=== PATIENT | female | born 1965 | race Caucasian/White ===

== ENCOUNTER 2019-12-15 20:00 | Outpatient (CLI) | payer MEDICARE, MEDICAID, SELFPAY | END 2019-12-15 20:01 | disposition home or self-care (01) | LOC: SLEEP 12-16 10:13 | PROVIDERS: Family Provider Nurse Practitioner; PCP Nurse Practitioner Family; Visit Provider Nurse Practitioner Family | DX: G47.30 Sleep apnea, unspecified (principal) | CPT/HCPCS: 95810 ==

== ENCOUNTER 2019-12-28 10:28 | Outpatient (CLI) | payer MEDICARE, MEDICAID, SELFPAY ==
--- NOTE | 2019-12-28 10:40 | XRR_ITS ---
PROCEDURE INFORMATION: Exam: XR Lumbosacral Spine, 2 or 3 Views Exam date and time: 12/28/2019 11:17 AM Age: 54 years old Clinical indication: Low back pain TECHNIQUE: Imaging protocol: XR of the lumbosacral spine, 2 or 3 views. COMPARISON: No relevant prior studies available. FINDINGS: Vertebrae: There may be L5 spondylolysis, difficult to confirm on this exam. There are multilevel degenerative changes including disc space narrowing, facet arthropathy, and hypertrophic spur formation. Gastrointestinal tract: There is a moderate amount of stool in the right colon. Soft tissues: Normal. Other findings: There are multiple nonspecific pelvic calcifications. XR/XR lumbar spine 2-3V* [id number] IMPRESSION: There may be L5 spondylolysis, difficult to confirm on this exam. Followup CT scan as clinically indicated.
== END 2019-12-28 10:29 | disposition home or self-care (01) ==
LOC: RAD 10:34
PROVIDERS: Family Provider Nurse Practitioner; PCP Nurse Practitioner Family; Visit Provider Nurse Practitioner Family
DX: S39.012A Strain of muscle, fascia and tendon of lower back, initial encounter (principal); X58.XXXA Exposure to other specified factors, initial encounter; M47.896 Other spondylosis, lumbar region
CPT/HCPCS: 72100

== ENCOUNTER 2020-01-18 14:02 | Outpatient (CLI) | payer MEDICARE, MEDICAID, SELFPAY ==
--- NOTE | 2020-01-18 14:30 | CT_ITS ---
WS: [id number] CT MYELOGRAM LUMBAR SPINE HISTORY: abnormal x-ray TECHNIQUE: Contiguous 2.5 mm axial imaging performed from T12 through the mid sacral level. Bone and soft tissue windows reviewed. Sagittal and coronal reformats are submitted and reviewed. DLP: 2096.[address] scans at [facility] use at least one of these dose optimization techniques: automat ed exposure control; mA and/or kV adjustment per patient size (includes targeted exams where dose is matched to clinical indication); or iterative reconstruction. COMPARISON: None available. 5 lumbar type vertebral bodies. L1 retrolisthesis by 2 mm. Mild disc space narrowing and desiccation at all levels. No fractures. L1-L2: Diffuse asymmetric disc bulging. Mild encroachment upon the ventral thecal sac. Mild central a nd subarticular recess stenosis. L2-L3: Diffuse annular disc bulging with mild central and subarticular recess narrowing. L3-L4: Diffuse asymmetric disc bulging and facet arthropathy. Mild central and subarticular recess st enosis. L4-L5: Diffuse annular disc bulging. Focal RIGHT foraminal disc protrusion. Moderate central and suba rticular recess stenosis. Moderate bilateral foraminal stenosis. L5-S1: Diffuse disc bulging with moderate facet and ligamentum flavum arthropathy. Osteophytes narrow the subarticular recesses and proximal foramen. Moderate central, subarticular recess and foraminal stenosis. Extensive atherosclerosis abdominal aorta with no aneurysm. Several cysts in the LEFT kidney. CT/CT lumbar spine w con [id number] IMPRESSION: 1. Moderate central, subarticular recess and foraminal stenosis at L4-5 and L5 -S1. Greatest stenosis at L5-S1. 2. Focal RIGHT foraminal disc protrusion at L4-5. 3. Mild central and subarticular recess stenosis at L1-2, L2-3 and L3-4.
[2020-01-18] MEDS: iohexol 300 mg/mL 100 mL Btl IV (14:56)
== END 2020-01-18 14:03 | disposition home or self-care (01) ==
LOC: RAD 14:03
PROVIDERS: Family Provider Nurse Practitioner Family; PCP Nurse Practitioner Family; Visit Provider Nurse Practitioner Family
DX: M43.16 Spondylolisthesis, lumbar region (principal); M51.26 Other intervertebral disc displacement, lumbar region; M48.061 Spinal stenosis, lumbar region without neurogenic claudication
CPT/HCPCS: 72132

== ENCOUNTER → 2020-01-28 13:13 | Outpatient (BNVA) | payer MEDICARE, MEDICAID, SELFPAY | PROVIDERS: Family Provider Nurse Practitioner Family; PCP Nurse Practitioner Family; Visit Provider Psychiatry & Neurology Psychiatry | DX: F43.12 Post-traumatic stress disorder, chronic (principal); F33.2 Major depressive disorder, recurrent severe without psychotic features; F10.21 Alcohol dependence, in remission; F12.20 Cannabis dependence, uncomplicated | CPT/HCPCS: 99204 ==

== ENCOUNTER 2020-01-29 07:33 | Outpatient (RCR) | payer MEDICARE, MEDICAID, SELFPAY | END 2020-01-30 23:59 | disposition home or self-care (01) | LOC: SPT 07:33 | PROVIDERS: Family Provider Nurse Practitioner Family; PCP Nurse Practitioner Family; Referring Provider Nurse Practitioner Family; Visit Provider Nurse Practitioner Family | DX: M48.07 Spinal stenosis, lumbosacral region (principal) | CPT/HCPCS: 97161 ==

== ENCOUNTER 2020-01-31 06:00 | Outpatient (RCR) | payer MEDICARE, MEDICAID, SELFPAY | END 2020-03-01 23:59 | disposition home or self-care (01) | LOC: SPT 06:00 | PROVIDERS: Family Provider Nurse Practitioner Family; PCP Nurse Practitioner Family; Referring Provider Nurse Practitioner Family; Visit Provider Nurse Practitioner Family | DX: M48.07 Spinal stenosis, lumbosacral region (principal) | CPT/HCPCS: 97110 ==

== ENCOUNTER → 2020-02-10 11:14 | Outpatient (BNVA) | payer MEDICARE, SELFPAY | PROVIDERS: Family Provider Nurse Practitioner Family; PCP Nurse Practitioner Family; Visit Provider Nurse Practitioner Family | DX: D64.9 Anemia, unspecified (principal); Z51.81 Encounter for therapeutic drug level monitoring; E03.9 Hypothyroidism, unspecified; D50.8 Other iron deficiency anemias; M54.42 Lumbago with sciatica, left side; M54.41 Lumbago with sciatica, right side; G89.29 Other chronic pain | CPT/HCPCS: 80053; 84443; 85025 ==

== ENCOUNTER → 2020-02-25 13:29 | Outpatient (BNVA) | payer MEDICARE, MEDICAID, SELFPAY | PROVIDERS: Family Provider Nurse Practitioner Family; PCP Nurse Practitioner Family; Visit Provider Psychiatry & Neurology Psychiatry | DX: F12.20 Cannabis dependence, uncomplicated (principal); F10.21 Alcohol dependence, in remission; F33.2 Major depressive disorder, recurrent severe without psychotic features; F43.12 Post-traumatic stress disorder, chronic | CPT/HCPCS: 99213 ==

== ENCOUNTER 2020-04-21 06:00 | Outpatient (RCR) | payer MEDICARE, MEDICAID, SELFPAY | END 2020-05-01 23:59 | disposition home or self-care (01) | LOC: SPT 06:00 | PROVIDERS: PCP Nurse Practitioner Family; Visit Provider Nurse Practitioner Family | DX: G89.29 Other chronic pain (principal); M54.42 Lumbago with sciatica, left side; M54.41 Lumbago with sciatica, right side | CPT/HCPCS: 97161 ==

== ENCOUNTER 2020-04-28 15:04 | Outpatient (CLI) | payer MEDICARE, MEDICAID, SELFPAY ==
--- NOTE | 2020-04-28 15:25 | MM_ITS ---
WS: [id number] SCREENING DIGITAL MAMMOGRAM WITH CAD HISTORY: SCREEN COMPARISON: None available. Bilateral CC and MLO views submitted. Computer aided detection analyzed. Breast composition: There are scattered areas of fibroglandular density. No suspicious masses, microc alcifications or architectural distortion. MM/[place] [id number] IMPRESSION: BI-RADS: 1-Negative FOLLOW UP: 1 Year Follow-up
== END 2020-04-28 15:05 | disposition home or self-care (01) ==
LOC: RADSHAW 15:08
PROVIDERS: PCP Nurse Practitioner Family; Visit Provider Nurse Practitioner Family
DX: Z12.31 Encounter for screening mammogram for malignant neoplasm of breast (principal)
CPT/HCPCS: 77067

== ENCOUNTER 2020-05-02 06:00 | Outpatient (RCR) | payer MEDICARE, MEDICAID, SELFPAY | END 2020-05-31 23:59 | disposition home or self-care (01) | LOC: SPT 06:00 | PROVIDERS: PCP Nurse Practitioner Family; Visit Provider Nurse Practitioner Family | DX: M54.42 Lumbago with sciatica, left side (principal); M54.41 Lumbago with sciatica, right side; G89.29 Other chronic pain | CPT/HCPCS: 97113 ==

== ENCOUNTER → 2020-05-09 10:37 | Outpatient (BNVA) | payer MEDICARE, MEDICAID, SELFPAY | PROVIDERS: PCP Nurse Practitioner Family; Visit Provider Nurse Practitioner Family | DX: R10.9 Unspecified abdominal pain (principal); K21.9 Gastro-esophageal reflux disease without esophagitis; R35.0 Frequency of micturition; H65.01 Acute serous otitis media, right ear | CPT/HCPCS: 81000 ==

== ENCOUNTER → 2020-05-13 10:37 | Outpatient (BNVA) | payer MEDICARE, MEDICAID, SELFPAY | PROVIDERS: PCP Nurse Practitioner Family; Visit Provider Nurse Practitioner Family | DX: R10.9 Unspecified abdominal pain (principal); K21.9 Gastro-esophageal reflux disease without esophagitis; R35.0 Frequency of micturition; H65.01 Acute serous otitis media, right ear | CPT/HCPCS: 87338 ==

== ENCOUNTER → 2020-05-30 07:44 | Outpatient (BNVA) | payer MEDICARE, MEDICAID, SELFPAY | PROVIDERS: PCP Nurse Practitioner Family; Visit Provider Psychiatry & Neurology Psychiatry | DX: F33.2 Major depressive disorder, recurrent severe without psychotic features (principal); F43.12 Post-traumatic stress disorder, chronic; F10.21 Alcohol dependence, in remission; F12.20 Cannabis dependence, uncomplicated | CPT/HCPCS: 99213 ==

== ENCOUNTER → 2020-08-11 10:44 | Outpatient (BNVA) | payer MEDICARE, MEDICAID, SELFPAY | PROVIDERS: PCP Nurse Practitioner Family; Visit Provider Nurse Practitioner Family | DX: E03.9 Hypothyroidism, unspecified (principal) | CPT/HCPCS: 84443 ==

== ENCOUNTER 2020-08-18 06:00 | Outpatient (RCR) | payer MEDICARE, MEDICAID, SELFPAY | END 2020-08-31 23:59 | disposition home or self-care (01) | LOC: SPT 06:00 | PROVIDERS: PCP Nurse Practitioner Family; Referring Provider Nurse Practitioner Family; Visit Provider Nurse Practitioner Family | DX: M54.5 Low back pain (principal) | CPT/HCPCS: 97110; 97162 ==

== ENCOUNTER → 2020-08-29 08:13 | Outpatient (BNVA) | payer MEDICARE, MEDICAID, SELFPAY | PROVIDERS: PCP Nurse Practitioner Family; Referring Provider Nurse Practitioner Family; Visit Provider Anesthesiology Pain Medicine | DX: G89.29 Other chronic pain (principal); M47.816 Spondylosis without myelopathy or radiculopathy, lumbar region; M48.061 Spinal stenosis, lumbar region without neurogenic claudication; M51.16 Intervertebral disc disorders with radiculopathy, lumbar region; M54.2 Cervicalgia; M25.512 Pain in left shoulder; J44.9 Chronic obstructive pulmonary disease, unspecified; E03.9 Hypothyroidism, unspecified; D50.8 Other iron deficiency anemias; F17.210 Nicotine dependence, cigarettes, uncomplicated; Z98.890 Other specified postprocedural states | CPT/HCPCS: 99204 ==

== ENCOUNTER 2020-09-01 06:00 | Outpatient (RCR) | payer MEDICARE, MEDICAID, SELFPAY | END 2020-10-01 23:59 | disposition home or self-care (01) | LOC: SPT 06:00 | PROVIDERS: PCP Nurse Practitioner Family; Referring Provider Nurse Practitioner Family; Visit Provider Nurse Practitioner Family | DX: M54.5 Low back pain (principal) | CPT/HCPCS: 97113 ==

== ENCOUNTER 2020-10-02 06:00 | Outpatient (RCR) | payer MEDICARE, MEDICAID, SELFPAY | END 2020-10-31 23:59 | disposition home or self-care (01) | LOC: SPT 06:00 | PROVIDERS: PCP Nurse Practitioner Family; Referring Provider Nurse Practitioner Family; Visit Provider Nurse Practitioner Family | DX: M54.5 Low back pain (principal) | CPT/HCPCS: 97113; 97164 ==

== ENCOUNTER → 2020-10-14 09:24 | Outpatient (BNVA) | payer MEDICARE, MEDICAID, SELFPAY | PROVIDERS: PCP Nurse Practitioner Family; Visit Provider Psychiatry & Neurology Psychiatry | DX: F33.2 Major depressive disorder, recurrent severe without psychotic features (principal); F10.21 Alcohol dependence, in remission; F12.20 Cannabis dependence, uncomplicated; F43.12 Post-traumatic stress disorder, chronic | CPT/HCPCS: 99213 ==

== ENCOUNTER → 2020-10-17 13:47 | Outpatient (BNVA) | payer MEDICARE, MEDICAID, SELFPAY | PROVIDERS: PCP Nurse Practitioner Family; Visit Provider Podiatrist Foot & Ankle Surgery | DX: M21.612 Bunion of left foot (principal); M21.611 Bunion of right foot | CPT/HCPCS: 73630 ==

== ENCOUNTER → 2020-10-18 12:18 | Outpatient (BNVA) | payer MEDICARE, MEDICAID, SELFPAY | PROVIDERS: PCP Nurse Practitioner Family; Visit Provider Anesthesiology Pain Medicine | DX: G89.29 Other chronic pain (principal); M51.16 Intervertebral disc disorders with radiculopathy, lumbar region; F17.210 Nicotine dependence, cigarettes, uncomplicated | CPT/HCPCS: 64483; 64484; J1100; J3490 ==

== ENCOUNTER → 2020-10-20 13:08 | Outpatient (BNVA) | payer MEDICARE, MEDICAID, SELFPAY | PROVIDERS: PCP Nurse Practitioner Family; Visit Provider Nurse Practitioner Family | DX: K21.9 Gastro-esophageal reflux disease without esophagitis (principal) | CPT/HCPCS: 87338 ==

== ENCOUNTER → 2020-10-24 09:15 | Outpatient (BNVA) | payer MEDICARE, MEDICAID, SELFPAY | PROVIDERS: PCP Nurse Practitioner Family; Visit Provider Internal Medicine | DX: Z11.59 Encounter for screening for other viral diseases (principal); Z86.010 Personal history of colon polyps | CPT/HCPCS: 87635 ==

== ENCOUNTER 2020-11-01 06:00 | Outpatient (RCR) | payer MEDICARE, MEDICAID, SELFPAY | END 2020-12-01 23:59 | disposition home or self-care (01) | LOC: SPT 06:00 | PROVIDERS: PCP Nurse Practitioner Family; Referring Provider Nurse Practitioner Family; Visit Provider Nurse Practitioner Family | DX: M54.5 Low back pain (principal) | CPT/HCPCS: 97113 ==

== ENCOUNTER → 2020-11-09 13:09 | Outpatient (BNVA) | payer MEDICARE, MEDICAID, SELFPAY | PROVIDERS: PCP Nurse Practitioner Family; Visit Provider Anesthesiology Pain Medicine | DX: G89.29 Other chronic pain (principal); M51.16 Intervertebral disc disorders with radiculopathy, lumbar region; M47.816 Spondylosis without myelopathy or radiculopathy, lumbar region; M48.061 Spinal stenosis, lumbar region without neurogenic claudication; M51.17 Intervertebral disc disorders with radiculopathy, lumbosacral region; M54.2 Cervicalgia; M25.512 Pain in left shoulder; J44.9 Chronic obstructive pulmonary disease, unspecified; E03.9 Hypothyroidism, unspecified; D50.8 Other iron deficiency anemias; S39.012A Strain of muscle, fascia and tendon of lower back, initial encounter; X58.XXXA Exposure to other specified factors, initial encounter | CPT/HCPCS: 99214 ==

== ENCOUNTER → 2020-11-21 13:23 | Outpatient (BNVA) | payer MEDICARE, MEDICAID, SELFPAY | PROVIDERS: PCP Nurse Practitioner Family; Visit Provider Anesthesiology Pain Medicine | DX: G89.29 Other chronic pain (principal); M51.16 Intervertebral disc disorders with radiculopathy, lumbar region; F17.210 Nicotine dependence, cigarettes, uncomplicated | CPT/HCPCS: 62323; J1040; J3490 ==

== ENCOUNTER → 2021-02-08 10:35 | Outpatient (BNVA) | payer MEDICARE, MEDICAID, SELFPAY | PROVIDERS: PCP Nurse Practitioner Family; Visit Provider Nurse Practitioner Family | DX: E03.9 Hypothyroidism, unspecified (principal); M25.50 Pain in unspecified joint; Z51.81 Encounter for therapeutic drug level monitoring; K21.9 Gastro-esophageal reflux disease without esophagitis; L98.9 Disorder of the skin and subcutaneous tissue, unspecified | CPT/HCPCS: 80053; 84443; 85651; 86038; 86140; 86431 ==

== ENCOUNTER → 2021-02-16 08:30 | Outpatient (BNVA) | payer MEDICARE, MEDICAID, SELFPAY | PROVIDERS: PCP Nurse Practitioner Family; Visit Provider Anesthesiology Pain Medicine | DX: G89.29 Other chronic pain (principal); M51.16 Intervertebral disc disorders with radiculopathy, lumbar region; M48.061 Spinal stenosis, lumbar region without neurogenic claudication; M47.816 Spondylosis without myelopathy or radiculopathy, lumbar region; M54.2 Cervicalgia; M25.512 Pain in left shoulder; M25.551 Pain in right hip; M25.552 Pain in left hip; J44.9 Chronic obstructive pulmonary disease, unspecified; E03.9 Hypothyroidism, unspecified; D50.8 Other iron deficiency anemias; Z98.890 Other specified postprocedural states | CPT/HCPCS: 99214 ==

== ENCOUNTER → 2021-02-24 08:15 | Outpatient (BNVA) | payer MEDICARE, MEDICAID, SELFPAY | PROVIDERS: PCP Nurse Practitioner Family; Visit Provider Internal Medicine Critical Care Medicine | DX: J44.9 Chronic obstructive pulmonary disease, unspecified (principal) | CPT/HCPCS: 87635 ==

== ENCOUNTER 2021-03-02 08:07 | Outpatient (CLI) | payer MEDICARE, MEDICAID, SELFPAY ==
--- NOTE | 2021-03-02 08:18 | CT_ITS ---
WS: [id number] LDCT LUNG CANCER SCREENING HISTORY: NICOTINE DEPENDENCE, CIGARETTES TECHNIQUE: Axial imaging performed from the apices to 1 cm below the costophrenic angles. Coronal and sagittal reformats are submitted with axial MIP series. All CT scans at [facility] use at least one of these dose optimization techniques: automated exposure control; mA and/or kV adjustment per patient size (includes targeted exams where dose is matched to clinical indication); or iterativ e reconstruction. DLP: 53.0 mGy.cm DIvol: 1.58 mGy COMPARISON: None available. Diagnostic quality: Satisfactory Lung Nodules: No pulmonary nodules or endobronchial lesions. Lungs: Moderate pulmonary hyperexpansion. Linear scar atelectasis in the posterior RIGHT upper lobe, image 45 of series 3. Heart: Normal size heart. Coronary artery calcifications are scattered in most significant in the LEF T anterior descending coronary artery. Other findings: Small hiatal hernia. No adenopathy identified. CT/CT lung screening [id number] IMPRESSION: LUNG-RADS: 1-Negative FOLLOW UP: 12 Month: Continue annual screening with LDCT OTHER FINDINGS (S MODIFIER): None.
--- NOTE | 2021-03-02 08:53 | PFTS_ITS ---
Date of Study:03/02/21 Date of Dictation: 03/03/2021 MECHANICS: Postbronchodilator forced vital capacity (FVC) is normal. Postbronchodilator forced expiratory volume in one second (FEV1) is moderately reduced 69%. FEV1/FVC is reduced. There is no significant response to bronchodilators.. FLOW VOLUME LOOP: Sloping of expiratory limb suggestive of airway obstruction . LUNG VOLUMES: Total lung capacity (TLC) is normal. Residual volume (RV) is normal . DIFFUSING CAPACITY FOR CARBON MONOXIDE:normal . INTERPRETATION: Spirometry suggestive of moderate obstructive ventilatory defect. Normal lung volumes. Normal gas transfer. Please correlate clinically MTDD
== END 2021-03-02 08:08 | disposition home or self-care (01) ==
LOC: RT 08:11
PROVIDERS: PCP Nurse Practitioner Family; Visit Provider Internal Medicine Critical Care Medicine
DX: J44.9 Chronic obstructive pulmonary disease, unspecified (principal); Z12.2 Encounter for screening for malignant neoplasm of respiratory organs; F17.210 Nicotine dependence, cigarettes, uncomplicated; K44.9 Diaphragmatic hernia without obstruction or gangrene; I25.10 Atherosclerotic heart disease of native coronary artery without angina pectoris; J98.11 Atelectasis
CPT/HCPCS: 71271; 94060; 94726; 94729; J7611

== ENCOUNTER 2021-03-07 07:14 | Outpatient (CLI) | payer MEDICARE, MEDICAID, SELFPAY ==
--- NOTE | 2021-03-07 07:23 | USCV_ITS ---
Josefina Arellano Age: 55 Gender: F : 1965 Exam Date: 03/07/2021 07:48 Ordering Phys: Tomasa Singh-C CASE FILLER Technologist: Mani Barnett [place] [facility] [place]: SCREENING HISTORY: Diameter (cm) AP x Transverse x Length Velocity (cm/s) Waveform Prox Aorta: 2.61 x 2.55 x 35.20 Mid Aorta: 1.96 x 2.33 x 53.10 Distal Aorta: 1.91 x 2.14 x 21.20 Right Iliac Prox: 0.84 x 1.23 x 42.70 Left Iliac Prox: 0.99 x 1.00 x 48.60 Stent Prox Landing x x Aneurysmal Sac Max x x Lt Lat Sac Dim Rt Lat Sac Dim Stent Dist Landing x x Right Iliac Stent x x Left Iliac Stent x x Right Renal Art Left Renal Art FINDINGS: Mild diffuse plaques in the abdominal aorta Normal abdominal aortic and proximal common iliac artery dimensions Normal Doppler flow velocities CONCLUSIONS No evidence of any aneurysm or stenosis in the abdominal aorta No significant stenosis or aneurysm in the proximal common iliac arteries bilaterally Dr Jose Mack MD FAC (Electronically Signed) Final Date: 07 March 2021 20:25 S
== END 2021-03-07 07:15 | disposition home or self-care (01) ==
LOC: RAD 07:19
PROVIDERS: PCP Nurse Practitioner Family; Visit Provider Nurse Practitioner Family
DX: Z13.6 Encounter for screening for cardiovascular disorders (principal)
CPT/HCPCS: 76706

== ENCOUNTER → 2021-03-20 10:00 | Outpatient (BNVA) | payer MEDICARE, MEDICAID, SELFPAY | PROVIDERS: PCP Nurse Practitioner Family; Visit Provider Psychiatry & Neurology Psychiatry | DX: F43.12 Post-traumatic stress disorder, chronic (principal); F33.2 Major depressive disorder, recurrent severe without psychotic features; F17.200 Nicotine dependence, unspecified, uncomplicated; F10.21 Alcohol dependence, in remission; F12.20 Cannabis dependence, uncomplicated | CPT/HCPCS: 99214 ==

== ENCOUNTER → 2021-03-24 09:15 | Outpatient (BNVA) | payer MEDICARE, MEDICAID, SELFPAY | PROVIDERS: PCP Nurse Practitioner Family; Visit Provider Internal Medicine | DX: Z20.822 Contact with and (suspected) exposure to COVID-19 (principal); Z01.812 Encounter for preprocedural laboratory examination | CPT/HCPCS: 87635 ==

== ENCOUNTER → 2021-03-29 11:13 | Outpatient (BNVA) | payer MEDICARE, MEDICAID, SELFPAY | PROVIDERS: PCP Nurse Practitioner Family; Visit Provider Internal Medicine | DX: Z01.818 Encounter for other preprocedural examination (principal); Z11.52 Encounter for screening for COVID-19 | CPT/HCPCS: 87635 ==

== ENCOUNTER 2021-04-03 08:46 | Day surgery (SDC) | payer MEDICARE, MEDICAID, SELFPAY ==
[2021-03-24 17:57] VITALS: BMI 27.1
--- NOTE | 2021-03-27 09:18 | W.PM.OPSFHP ---
Same Day Surgery H&P Indication for Procedure/HPI DATE OF PROCEDURE: March 27, 2021 CHIEF COMPLAINT/INDICATIONFOR SURGICAL PROCEDURE: Family history of colon cancer in mother PREOP DIAGNOSIS: Family history of colon cancer PLANNED PROCEDRUE: Operation Date: 03/27/21 09:30 Proposed Procedures p Colonoscopy 66220 Z86.010(Not Applicable) - Braxton Spencer MD Medications/Allergies* Allergies/Adverse Reactions Allergy/AdvReac Type Severity Reaction Status Date / Time hydrocodone Allergy Intermediate itching Verified 03/24/21 09:39 Pertinent History/Comorbid Conditions* Medical History (Updated 03/20/21 @ 11:01 by Rm Reynolds MD) Anemia Chronic low back pain COPD mixed type Depression Gastroesophageal reflux disease Hypothyroidism Pt. due for labs will obtain today. Pt. to continue current medications. Schizophrenia Family History (Updated 01/27/20 @ 10:31 by Belinda Camargo LPN) Grandmother Mother Cancer Mother Grandmother Social History Smoking and tobacco status: current every day smoker cigarettes Years cigarettes smoked: 45 [ Other cigarette details: Hx of 2.5 PPD x 45 Years ] Quit status (tobacco): considering quitting Second hand smoke exposure: Yes Smoking risk assessment/counseling performed?: Yes Tobacco counseling given: counseling >3 minutes Alcohol intake: former Year of sobriety/quit date alcohol: 2017 Desire information about alcohol rehabilitation?: No Counseling given: No Counseling given: No Lives independently: Yes Household members: none Marital status: Current occupational status: disabled Pets and animals: No History of recent travel: No Current gender identity: Female Pertinent Exam Findings alert, oriented x 3, clear to auscultation bilaterally, regular rate & rhythm and procedure specific exam findings Recommendations Surgery/Procedure today Coding Level of Care Code Acute Recordist Chief for Mena Quintanilla
--- NOTE | 2021-04-03 09:09 | P.HP_ITS ---
Same Day Surgery H&P Indication for Procedure/HPI DATE OF PROCEDURE: April 03, 2021 CHIEF COMPLAINT/INDICATIONFOR SURGICAL PROCEDURE: Family history of colon cancer in mother PREOP DIAGNOSIS: c PLANNED PROCEDRUE: Operation Date: 04/03/21 11:00 Proposed Procedures p Colonoscopy 41405 Z86.010(Not Applicable) - Braxton Spencer MD Medications/Allergies* Allergies/Adverse Reactions Allergy/AdvReac Type Severity Reaction Status Date / Time hydrocodone Allergy Intermediate itching Verified 03/24/21 09:39 Pertinent History/Comorbid Conditions* Medical History (Updated 03/20/21 @ 11:01 by Rm Reynolds MD) Anemia Chronic low back pain COPD mixed type Depression Gastroesophageal reflux disease Hypothyroidism Pt. due for labs will obtain today. Pt. to continue current medications. Schizophrenia Family History (Updated 01/27/20 @ 10:31 by Belinda Camargo LPN) Grandmother Mother Cancer Mother Grandmother Social History Smoking and tobacco status: current every day smoker cigarettes Years cigarettes smoked: 45 [ Other cigarette details: Hx of 2.5 PPD x 45 Years ] Quit status (tobacco): considering quitting Second hand smoke exposure: Yes Smoking risk assessment/counseling performed?: Yes Tobacco counseling given: counseling >3 minutes Alcohol intake: former Year of sobriety/quit date alcohol: 2017 Desire information about alcohol rehabilitation?: No Counseling given: No Counseling given: No Lives independently: Yes Household members: none Marital status: Current occupational status: disabled Pets and animals: No History of recent travel: No Current gender identity: Female Pertinent Exam Findings alert, oriented x 3, clear to auscultation bilaterally, regular rate & rhythm and procedure specific exam findings Recommendations Surgery/Procedure today Coding Level of Care Code Acute Physician Support Coordinator for Mena Quintanilla
--- NOTE | 2021-04-03 09:21 | ANES.PREANE2 ---
Pre-Anesthetic Assessment Pre-Anesthetic Assessment: Height/Weight: Height 1.57 m Weight 67.132 kg Proposed Procedure: Operation Date: 04/03/21 11:00 Proposed Procedures p Colonoscopy 59294 Z86.010(Not Applicable) - Braxton Spencer MD Was Beta Derek taken within 24 hours: N/A Was Clonidine taken within 24 hours: N/A Social: Social History: Tobacco and No alcohol Exam: Pre-Anes Outpt Exam: alert, oriented x 3 and regular rate & rhythm Airway: Submandibular: WNL Cervical ROM: WNL MP: 2 Dentition: Loose Pulmonary: Pulmonary: COPD CV/HEM: CV/HEM: Anemia GI: GI: GERD Metabolic: Metabolic: Thyroid Musc/skel: Musc/skel: Fibromyalgia and Lower Back Pain Neuropsych: Neuropsych: Anxiety and Depression Comments: Shcizo Anesthetic Plan: ASA status: 3 Anesthesia: MAC Risk of > 500 ml blood loss (7ml/kg in children): No PFSH Anesthesia PFSH: Medical History Anemia Chronic low back pain COPD mixed type Depression Gastroesophageal reflux disease Hypothyroidism Pt. due for labs will obtain today. Pt. to continue current medications. Schizophrenia Family History Mother Cancer Grandmother Cancer Social History Smoking and tobacco status: current every day smoker cigarettes Years cigarettes smoked: 45 [ Other cigarette details: Hx of 2.5 PPD x 45 Years ] Quit status (tobacco): considering quitting Second hand smoke exposure: Yes Smoking risk assessment/counseling performed?: Yes Tobacco counseling given: counseling >3 minutes Alcohol intake: former Year of sobriety/quit date alcohol: 2017 Desire information about alcohol rehabilitation?: No Counseling given: No Counseling given: No Lives independently: Yes Household members: none Marital status: Current occupational status: disabled Pets and animals: No History of recent travel: No Current gender identity: Female Data Anesthesia Cardiac Studies: No Data to Display
[2021-04-03 10:37] VITALS: BP 156/102; PULSE 71; RESP 16; TEMP 37.2; O2SAT 96
[2021-04-03] MEDS: sodium chloride 0.9% 1,000 ML 30 ML IV (10:53)
[2021-04-03 12:22] VITALS: BP 106/86; PULSE 87; RESP 16; TEMP 36.6; O2SAT 92
[2021-04-03 12:41] VITALS: BP 123/66; PULSE 66; RESP 16; O2SAT 96
--- NOTE | 2021-04-03 14:50 | ANE.PACU2 ---
Inpatient post-anesthesia follow up: Airway intact: Yes Vital signs: Temperature 97.9 F Pulse Rate 66 Respiratory Rate 16 Blood Pressure 123/66 Pulse Oximetry 96 Oxygen Delivery Me thod Room Air Oxygen Flow Rate Fraction of Inspir ed Oxygen Hydration adequate: Yes Nausea and vomiting: No Pain level: 1 Mental status: Baseline
== END 2021-04-03 13:01 | disposition home or self-care (01) ==
PROVIDERS: PCP Nurse Practitioner Family; Visit Provider Internal Medicine
PROC: 0DJD8ZZ Inspection of Lower Intestinal Tract, Via Natural or Artificial Opening Endoscopic (ICD-10-PCS; CPT 45378; principal; 2021-04-03 11:00)
DX: K57.30 Diverticulosis of large intestine without perforation or abscess without bleeding (principal); Z80.0 Family history of malignant neoplasm of digestive organs; Z86.010 Personal history of colon polyps; J44.9 Chronic obstructive pulmonary disease, unspecified; F32.9 Major depressive disorder, single episode, unspecified; K21.9 Gastro-esophageal reflux disease without esophagitis; E03.9 Hypothyroidism, unspecified; F17.210 Nicotine dependence, cigarettes, uncomplicated
CPT/HCPCS: 45378; 96360; 96361; J2704; J7030

== ENCOUNTER → 2021-06-22 07:21 | Outpatient (BNVA) | payer MEDICARE, MEDICAID, SELFPAY | PROVIDERS: PCP Nurse Practitioner Family; Visit Provider Psychiatry & Neurology Psychiatry | DX: F43.12 Post-traumatic stress disorder, chronic (principal); F33.2 Major depressive disorder, recurrent severe without psychotic features; F10.21 Alcohol dependence, in remission; F17.200 Nicotine dependence, unspecified, uncomplicated; F12.20 Cannabis dependence, uncomplicated | CPT/HCPCS: 99214 ==

== ENCOUNTER → 2021-07-26 10:21 | Outpatient (BNVA) | payer MEDICARE, MEDICAID, SELFPAY | PROVIDERS: PCP Nurse Practitioner Family; Visit Provider Nurse Practitioner Family | DX: E78.5 Hyperlipidemia, unspecified (principal); E03.9 Hypothyroidism, unspecified; Z79.899 Other long term (current) drug therapy | CPT/HCPCS: 80053; 80061; 84443 ==

== ENCOUNTER → 2021-08-30 11:30 | Outpatient (BNVA) | payer MEDICARE, MEDICAID, SELFPAY | PROVIDERS: PCP Nurse Practitioner Family; Visit Provider Nurse Practitioner Family | DX: Z12.4 Encounter for screening for malignant neoplasm of cervix (principal); Z12.39 Encounter for other screening for malignant neoplasm of breast; Z78.9 Other specified health status | CPT/HCPCS: 88175 ==

== ENCOUNTER → 2021-09-14 07:05 | Outpatient (BNVA) | payer MEDICARE, MEDICAID, SELFPAY | PROVIDERS: PCP Nurse Practitioner Family; Visit Provider Psychiatry & Neurology Psychiatry | DX: F43.12 Post-traumatic stress disorder, chronic (principal); F33.2 Major depressive disorder, recurrent severe without psychotic features; F17.210 Nicotine dependence, cigarettes, uncomplicated; F10.21 Alcohol dependence, in remission; F12.20 Cannabis dependence, uncomplicated | CPT/HCPCS: 99214 ==

== ENCOUNTER → 2021-09-20 10:45 | Outpatient (BNVA) | payer MEDICARE, MEDICAID, SELFPAY | PROVIDERS: PCP Nurse Practitioner Family; Visit Provider Nurse Practitioner Family | DX: L91.8 Other hypertrophic disorders of the skin (principal) | CPT/HCPCS: 88304 ==

== ENCOUNTER 2021-12-19 06:00 | Outpatient (RCR) | payer MEDICARE, MEDICAID, SELFPAY | END 2022-01-01 23:59 | disposition home or self-care (01) | LOC: SPT 06:00 | PROVIDERS: PCP Nurse Practitioner Family; Referring Provider Nurse Practitioner Family; Visit Provider Nurse Practitioner Family | DX: M51.16 Intervertebral disc disorders with radiculopathy, lumbar region (principal) | CPT/HCPCS: 97161 ==

== ENCOUNTER 2022-01-30 06:00 | Outpatient (RCR) | payer MEDICARE, MEDICAID, SELFPAY | END 2022-03-01 23:59 | disposition home or self-care (01) | LOC: SPT 06:00 | PROVIDERS: PCP Nurse Practitioner Family; Referring Provider Nurse Practitioner Family; Visit Provider Nurse Practitioner Family | DX: M51.16 Intervertebral disc disorders with radiculopathy, lumbar region (principal) | CPT/HCPCS: 97110 ==

== ENCOUNTER → 2022-02-09 09:37 | Outpatient (BNVA) | payer MEDICARE, MEDICAID, SELFPAY | PROVIDERS: PCP Nurse Practitioner Family; Visit Provider Psychiatry & Neurology Psychiatry | DX: F33.2 Major depressive disorder, recurrent severe without psychotic features (principal); F43.12 Post-traumatic stress disorder, chronic; F17.200 Nicotine dependence, unspecified, uncomplicated; F12.20 Cannabis dependence, uncomplicated; F10.21 Alcohol dependence, in remission | CPT/HCPCS: 99214 ==

== ENCOUNTER 2022-05-08 06:00 | Outpatient (RCR) | payer MEDICARE, MEDICAID, SELFPAY | END 2022-05-31 23:59 | disposition home or self-care (01) | LOC: SPT 06:00 | PROVIDERS: PCP Nurse Practitioner Family; Referring Provider Nurse Practitioner Family; Visit Provider Nurse Practitioner Family | DX: M54.50 Low back pain, unspecified (principal) | CPT/HCPCS: 97113; 97161 ==

== ENCOUNTER → 2022-05-10 10:03 | Outpatient (BNVA) | payer MEDICARE, MEDICAID, SELFPAY | PROVIDERS: PCP Nurse Practitioner Family; Visit Provider Psychiatry & Neurology Psychiatry | DX: F33.2 Major depressive disorder, recurrent severe without psychotic features (principal); F43.12 Post-traumatic stress disorder, chronic; F17.200 Nicotine dependence, unspecified, uncomplicated; F12.20 Cannabis dependence, uncomplicated; F10.21 Alcohol dependence, in remission | CPT/HCPCS: 99214 ==

== ENCOUNTER → 2022-08-27 14:52 | Outpatient (BNVA) | payer MEDICARE, MEDICAID, SELFPAY | PROVIDERS: PCP Nurse Practitioner Family; Visit Provider Internal Medicine Critical Care Medicine | DX: J43.2 Centrilobular emphysema (principal); J30.9 Allergic rhinitis, unspecified; F17.200 Nicotine dependence, unspecified, uncomplicated | CPT/HCPCS: 99214 ==

== ENCOUNTER → 2023-02-18 15:23 | Outpatient (BNVA) | payer MEDICARE, MEDICAID, SELFPAY | PROVIDERS: PCP Nurse Practitioner Family; Visit Provider Internal Medicine Pulmonary Disease | DX: J44.9 Chronic obstructive pulmonary disease, unspecified (principal); J30.9 Allergic rhinitis, unspecified; F17.210 Nicotine dependence, cigarettes, uncomplicated | CPT/HCPCS: 99214 ==

== ENCOUNTER → 2023-02-27 14:06 | Outpatient (BNVA) | payer MEDICARE, MEDICAID, SELFPAY | PROVIDERS: PCP Nurse Practitioner Family; Visit Provider Nurse Practitioner Family | DX: I10 Essential (primary) hypertension (principal); E03.9 Hypothyroidism, unspecified; F32.9 Major depressive disorder, single episode, unspecified | CPT/HCPCS: 80053; 80061; 84443 ==

== ENCOUNTER 2023-03-15 07:12 | Outpatient (CLI) | payer MEDICARE, MEDICAID, SELFPAY ==
--- NOTE | 2023-03-15 | CT_ITS ---
WS: [id number] LDCT LUNG CANCER SCREENING TECHNIQUE: Noncontrast CT of the chest with coronal and sagittal reformatted images. CLINICAL INFORMATION: lung screening COMPARISON: CT March 02, 2021 DLP: 51.10 mGy.cm DIvol: Mean CTDIvol: 0.80 (mGy) All CT scans at [facility] use at least one of these dose optimization techniques: automat ed exposure control; mA and/or kV adjustment per patient size (includes targeted exams where dose is matched to clinical indication); or iterative reconstruction. FINDINGS: Lungs are well aerated. No acute pulmonary infiltrates. Calcified granuloma LEFT lower lobe . Normal caliber thoracic aorta. Coronary calcification. Mild aortic calcification. No mediastinal or h ilar lymphadenopathy. No axillary lymphadenopathy. Cystectomy clips. Adrenal glands are normal. Small esophageal hiatal hernia. CT/CT lung screening [id number] IMPRESSION: LUNG-RADS: 1-Negative FOLLOW UP: 12 Month: Continue annual screening with LDCT
== END 2023-03-15 07:13 | disposition home or self-care (01) ==
PROVIDERS: PCP Nurse Practitioner Family; Visit Provider Internal Medicine Pulmonary Disease
DX: Z12.2 Encounter for screening for malignant neoplasm of respiratory organs (principal); J84.9 Interstitial pulmonary disease, unspecified
CPT/HCPCS: 71271

== ENCOUNTER → 2023-08-22 14:12 | Outpatient (BNVA) | payer MEDICARE, MEDICAID, SELFPAY | PROVIDERS: PCP Nurse Practitioner Family; Visit Provider Internal Medicine Pulmonary Disease | DX: J43.2 Centrilobular emphysema (principal); F17.210 Nicotine dependence, cigarettes, uncomplicated; J30.9 Allergic rhinitis, unspecified | CPT/HCPCS: 99214 ==

== ENCOUNTER → 2023-10-29 15:55 | Outpatient (BNVA) | payer MEDICARE, MEDICAID, SELFPAY | PROVIDERS: PCP Nurse Practitioner Family; Visit Provider Physician Assistant | DX: M16.12 Unilateral primary osteoarthritis, left hip | CPT/HCPCS: 73522; 99203 ==

== ENCOUNTER 2023-12-17 11:14 | Outpatient (RCR) | payer MEDICARE, MEDICAID, SELFPAY | END 2024-01-01 23:59 | disposition home or self-care (01) | LOC: SPT 11:14 | PROVIDERS: PCP Family Medicine; Visit Provider Nurse Practitioner Family | DX: M51.36 Other intervertebral disc degeneration, lumbar region (principal); M25.511 Pain in right shoulder; M47.22 Other spondylosis with radiculopathy, cervical region | CPT/HCPCS: 97113; 97161 ==

== ENCOUNTER → 2023-12-27 07:53 | Outpatient (BNVA) | payer MEDICARE, MEDICAID, SELFPAY | PROVIDERS: PCP Family Medicine; Visit Provider Student in an Organized Health Care Education/Training Program | DX: M16.12 Unilateral primary osteoarthritis, left hip (principal) | CPT/HCPCS: 20610; 77002; 99214; J3301 ==

== ENCOUNTER 2024-01-02 06:00 | Outpatient (RCR) | payer MEDICARE, MEDICAID, SELFPAY | END 2024-01-24 23:59 | disposition home or self-care (01) | LOC: SPT 06:00 | PROVIDERS: PCP Family Medicine; Visit Provider Nurse Practitioner Family | DX: M47.22 Other spondylosis with radiculopathy, cervical region (principal); M25.511 Pain in right shoulder | CPT/HCPCS: 97113 ==

== ENCOUNTER → 2024-01-15 10:46 | Outpatient (BNVA) | payer MEDICARE, MEDICAID, OTHER, SELFPAY | PROVIDERS: PCP Family Medicine; Visit Provider Nurse Practitioner Family | DX: R05.9 Cough, unspecified (principal); J32.9 Chronic sinusitis, unspecified | CPT/HCPCS: 87400; 87426 ==

== ENCOUNTER 2024-01-29 14:10 | Outpatient (CLI) | payer MEDICARE, MEDICAID, SELFPAY ==
--- NOTE | 2024-01-29 14:30 | XR_ITS ---
WS: [id number] DEXA (DUAL ENERGY X-RAY ABSORPTIOMETRY) Bone mineral density was performed using a Vitriflex machine. HISTORY: M81.0 - Age-related osteoporosis without current patholog... COMPARISON: None available. Lumbar spine BMD (L1-L4): 1.439 g/cm2 T score: 2.2 Z score: 3.4 Total hip BMD: Left: 0.907 g/cm2. T score: -0.8 Z score: 0.2 Right: 0.852 g/cm2. T score: -1.2 Z score: -0.3 10 year probability of a major osteoporotic fracture is 28.4%. IMPRESSION: OSTEOPENIA based upon the WHO classification for females.
--- NOTE | 2024-01-29 15:00 | MM_ITS ---
WS: [id number] BILATERAL 3D TOMOSYNTHESIS DIGITAL SCREENING MAMMOGRAPHY WITH CAD CLINICAL INFORMATION: Z12.39 - Encounter for other screening for malignant neop... HISTORY: Screening mammogram. LEFT breast pain and soreness. COMPARISON: 2020 TECHNIQUE: Bilateral CC and MLO views. FINDINGS: Scattered fibroglandular densities bilaterally. No suspicious focal mass, asymmetry, calcifications, or architectural distortion. No evidence of malignancy. Tiny incidental punctate calcification RIGHT breast. IMPRESSION: MM/[place] [id number] BI-RADS: 2-Benign FOLLOW UP: 1 Year Follow-up Recommend return to annual screening mammography.
== END 2024-01-29 14:11 | disposition home or self-care (01) ==
LOC: RAD 14:11
PROVIDERS: PCP Nurse Practitioner Family; Visit Provider Nurse Practitioner Family
DX: M85.88 Other specified disorders of bone density and structure, other site; Z12.39 Encounter for other screening for malignant neoplasm of breast; R92.323 Mammographic fibroglandular density, bilateral breasts
CPT/HCPCS: 77063; 77067; 77080

== ENCOUNTER → 2024-01-30 09:04 | Outpatient (BNVA) | payer MEDICARE, MEDICAID, SELFPAY | PROVIDERS: PCP Nurse Practitioner Family; Referring Provider Nurse Practitioner Family; Visit Provider Surgery | DX: Z80.0 Family history of malignant neoplasm of digestive organs; Z86.010 Personal history of colon polyps; K59.09 Other constipation; K21.9 Gastro-esophageal reflux disease without esophagitis | CPT/HCPCS: 99204; 99214 ==

== ENCOUNTER → 2024-02-05 11:06 | Outpatient (BNVA) | payer MEDICARE, MEDICAID, SELFPAY | PROVIDERS: PCP Nurse Practitioner Family; Visit Provider Nurse Practitioner Family | DX: E03.9 Hypothyroidism, unspecified (principal); E78.5 Hyperlipidemia, unspecified; I10 Essential (primary) hypertension | CPT/HCPCS: 80053; 80061; 84443 ==

== ENCOUNTER 2024-03-11 08:18 | Day surgery (SDC) | payer MEDICARE, MEDICAID, SELFPAY ==
[2024-03-11 08:37] VITALS: BP 117/88; PULSE 98; RESP 18; TEMP 36.6; O2SAT 96
--- NOTE | 2024-03-11 08:41 | ANES.PREANE2 ---
Pre-Anesthetic Assessment Height/Weight: Height 1.55 m Preop Diagnosis: H/O colonic polyps Operation Date: 03/11/24 09:15 Proposed Procedures p 01471 colonoscopy G0105 screen colon H risk Z86.010, Z80.0,K59.09(Not Applicable) - Roland Butler DO Familial anesthetic complications: none Was Beta Derek taken within 24 hours: N/A Last intake: meal- 1130 solids liquids-0700 sip with meds Social Tobacco (Cannabis use last 03/10/24. 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 wheezes) and regular rate & rhythm Airway Submandibular: within normal limits Cervical ROM: within normal limits Mallampati: Class I Dentition: chipped and other Comments: Comments: poor dentition Pulmonary Chronic Obstructive Pulmonary Disease CV/HEM None reported None reported Hepatic None reported GI None reported Metabolic Hyperlipidemia and Thyroid Disease Musc/skel Lower Back Pain and Weakness (walker use) Neuropsych Anxiety and Depression schizophrenia Anesthetic Plan ASA status: 3 Anesthesia: MAC Medications/Allergies Home Medications Medication Instructions Recorded Confirmed Last Taken Type aspirin 81 mg tablet,delayed 81 mg PO QDAY #90 tabs 01/29/20 03/09/24 03/10/24 Rx release (Aspir-Low) cetirizine 10 mg capsule 10 mg PO QDAY #90 caps 01/29/20 03/09/24 03/10/24 Rx simvastatin 20 mg tablet See Rx Instructions .Route 02/08/21 03/09/24 03/10/24 Rx .COMPLEX #90 tabs magnesium hydroxide 400 mg/5 mL 15 ml PO DAILY PRN Constipation 04/03/21 03/09/24 03/10/24 History oral suspension (Milk of Magnesia) lansoprazole 30 mg capsule,delayed See Rx Instructions .Route 06/26/21 03/09/24 03/10/24 Rx release .COMPLEX #30 caps walker #1 ea 07/18/22 02/05/24 03/10/24 Rx buprenorphine 7.5 mcg/hour weekly 1 patch transdermal Q7D 04/10/23 03/09/24 03/10/24 History transdermal patch (Butrans) fluticasone fur. 100 mcg-umeclid 1 inh inhalation DAILY #60 ea 04/12/23 03/09/24 03/10/24 Rx 62.5 mcg-vilant 25 mcg inhalat.powder (Trelegy Ellipta) levothyroxine 25 mcg tablet See Rx Instructions .Route 07/29/23 03/11/24 03/11/24 Rx .COMPLEX #90 tabs gabapentin 800 mg tablet 800 mg PO TID #90 tabs 10/15/23 03/09/24 03/10/24 Rx albuterol sulfate 90 mcg/actuation 1 inh inhalation QID #8.5 grams 01/15/24 03/09/24 03/10/24 Rx aerosol inhaler (Ventolin HFA) bupropion HCl 150 mg 24 hr tablet, 150 mg PO QAM #30 tabs 01/29/24 03/09/24 03/10/24 Rx extended release (Wellbutrin XL) duloxetine 30 mg capsule,delayed 30 mg PO DAILY #30 caps 01/29/24 03/09/24 03/10/24 Rx release (Cymbalta) duloxetine 60 mg capsule,delayed 60 mg PO DAILY #30 caps 01/29/24 03/09/24 03/10/24 Rx release (Cymbalta) hydroxyzine HCl 50 mg tablet 50 mg PO QID PRN anxiety #120 tabs 01/29/24 03/09/24 03/10/24 Rx trazodone 100 mg tablet 400 mg (4 x 100 mg) PO .HS #120 01/29/24 03/09/24 03/10/24 Rx tabs varenicline 1 mg tablet 1 mg PO BID #56 tabs 01/29/24 03/09/24 03/10/24 Rx alendronate 70 mg tablet (Fosamax) 70 mg PO .weekly #4 tabs 02/05/24 03/09/24 03/10/24 Rx albuterol sulfate 2.5 mg/3 mL See Rx Instructions .Route 02/25/24 03/09/24 03/10/24 Rx (0.083 %) solution for nebulization .COMPLEX #180 mL Allergies Allergy/AdvReac Type Severity Reaction Status Date / Time acetaminophen [From Percocet] AdvReac Severe Halucinatio Verified 03/11/24 08:34 ns oxycodone [From Percocet] AdvReac Severe Halucinatio Verified 03/11/24 08:34 ns PFSH Anesthesia Medical History Psychiatric care Gastroesophageal reflux disease Anemia Hypothyroidism Chronic low back pain COPD mixed type Depression Schizophrenia Surgical History Hx of removal of neck cyst Family History Mother Cancer Grandmother Cancer Social History Smoking and tobacco/nicotine status: current every day tobacco/nicotine user cigarettes Packs smoked per day: 0.25 Years cigarettes smoked: 45 [ Other cigarette details: Hx of 2.5 PPD x 45 Years] Quit status (tobacco/nicotine): has tried quititng Number of times tried to quit tobacco: 10 Second hand smoke exposure: No Alcohol intake: former Year of sobriety/quit date alcohol: 2017 Substance/Drug Use: former Date of last use: LAST USED A MONTH AGO Adopted: No Lives independently: Yes Household members: none Marital status: Current occupational status: disabled Pets and animals: No Do you think of yourself as: Straight/Heterosexual Current gender identity: Female Data Anesthesia Cardiac Studies: No Data to Display
[2024-03-11] MEDS: sodium chloride 0.9% 1,000 ML 30 ML IV (08:45)
[2024-03-11 09:04] VITALS: BMI 26.4
[2024-03-11 09:18] VITALS: BP 93/66; PULSE 93; RESP 16; TEMP 36.1; O2SAT 95
[2024-03-11 09:25] VITALS: BP 102/72; PULSE 89; RESP 16; O2SAT 94
[2024-03-11 09:36] VITALS: BP 119/92; PULSE 75; RESP 16; O2SAT 98
--- NOTE | 2024-03-11 15:24 | ANE.PACU2 ---
Inpatient post-anesthesia follow up: Airway intact: Yes Vital signs: Temperature 97 F Pulse Rate 75 Respiratory Rate 16 Blood Pressure 119/92 Pulse Oximetry 98 Oxygen Delivery Me thod Room Air Oxygen Flow Rate Fraction of Inspir ed Oxygen Hydration adequate: Yes Nausea and vomiting: No Pain level: 2 Mental status: Baseline
== END 2024-03-11 09:47 | disposition home or self-care (01) ==
PROVIDERS: PCP Nurse Practitioner Family; Visit Provider Surgery
PROC: 0DJD8ZZ Inspection of Lower Intestinal Tract, Via Natural or Artificial Opening Endoscopic (ICD-10-PCS; CPT 45378; principal; 2024-03-11 09:15)
DX: K59.09 Other constipation (principal); Z86.010 Personal history of colon polyps; Z80.0 Family history of malignant neoplasm of digestive organs; K57.30 Diverticulosis of large intestine without perforation or abscess without bleeding; K64.8 Other hemorrhoids; K63.5 Polyp of colon; J44.9 Chronic obstructive pulmonary disease, unspecified; E78.5 Hyperlipidemia, unspecified; F20.9 Schizophrenia, unspecified; Z79.82 Long term (current) use of aspirin; F17.210 Nicotine dependence, cigarettes, uncomplicated
CPT/HCPCS: 45385; 88305; J2704; J7030

== ENCOUNTER → 2024-03-26 09:12 | Outpatient (BNVA) | payer MEDICARE, MEDICAID, SELFPAY | PROVIDERS: PCP Nurse Practitioner Family; Visit Provider Surgery | DX: Z09 Encounter for follow-up examination after completed treatment for conditions other than malignant neoplasm (principal); Z80.0 Family history of malignant neoplasm of digestive organs; Z86.010 Personal history of colon polyps; K59.04 Chronic idiopathic constipation | CPT/HCPCS: 99214 ==

== ENCOUNTER 2024-07-28 14:07 | Emergency (ER) | payer MEDICARE, MEDICAID, SELFPAY ==
[2024-07-28 14:45] VITALS: BP 110/73; PULSE 82; RESP 16; TEMP 36.6; O2SAT 93
--- NOTE | 2024-07-28 15:02 | W.ED.ANXIETY ---
HPI - Anxiety General: Chief Complaint: Anxiety Stated Complaint: anxiety Time Seen by Provider: 07/28/24 14:53 History of Present Illness: 58-year-old female with history of schizophrenia who presents the emergency room asking to have her medications refilled. She is told to go to the stress center which apparently she thought might be the emergency room. She missed her last appointment and so now she cannot get her medications refilled she says. She did not bring a list of these medications. Related Data Home Medications Medication Instructions Recorded Confirmed magnesium hydroxide 400 mg/5 mL 15 ml PO DAILY PRN Constipation 04/03/21 07/01/24 oral suspension (Milk of Magnesia) buprenorphine 7.5 mcg/hour weekly 1 patch transdermal Q7D 04/10/23 07/01/24 transdermal patch (Butrans) hydrocodone 5 mg-acetaminophen 325 tab PO 07/01/24 07/01/24 mg tablet Previous Rx's Medication Instructions Recorded aspirin 81 mg tablet,delayed 81 mg PO QDAY #90 tabs 01/29/20 release (Aspir-Low) cetirizine 10 mg capsule 10 mg PO QDAY #90 caps 01/29/20 simvastatin 20 mg tablet See Rx Instructions .Route 02/08/21 .COMPLEX #90 tabs lansoprazole 30 mg capsule,delayed See Rx Instructions .Route 06/26/21 release .COMPLEX #30 caps walker #1 ea 07/18/22 fluticasone fur. 100 mcg-umeclid 1 inh inhalation DAILY #60 ea 04/12/23 62.5 mcg-vilant 25 mcg inhalat.powder (Trelegy Ellipta) levothyroxine 25 mcg tablet See Rx Instructions .Route 07/29/23 .COMPLEX #90 tabs gabapentin 800 mg tablet 800 mg PO TID #90 tabs 10/15/23 bupropion HCl 150 mg 24 hr tablet, 150 mg PO QAM #30 tabs 01/29/24 extended release (Wellbutrin XL) duloxetine 30 mg capsule,delayed 30 mg PO DAILY #30 caps 01/29/24 release (Cymbalta) duloxetine 60 mg capsule,delayed 60 mg PO DAILY #30 caps 01/29/24 release (Cymbalta) hydroxyzine HCl 50 mg tablet 50 mg PO QID PRN anxiety #120 tabs 01/29/24 trazodone 100 mg tablet 400 mg (4 x 100 mg) PO .HS #120 01/29/24 tabs varenicline 1 mg tablet 1 mg PO BID #56 tabs 01/29/24 linaclotide 72 mcg capsule 72 mcg PO DAILY 30 days #30 caps 03/26/24 (Linzess) albuterol sulfate 90 mcg/actuation See Rx Instructions .Route 04/01/24 aerosol inhaler .COMPLEX #9 grams alendronate 70 mg tablet See Rx Instructions .Route 06/02/24 .COMPLEX #4 tabs albuterol sulfate 2.5 mg/3 mL See Rx Instructions .Route 07/01/24 (0.083 %) solution for nebulization .COMPLEX #180 mL Allergies Allergy/AdvReac Type Severity Reaction Status Date / Time acetaminophen [From Percocet] AdvReac Severe Halucinatio Verified 07/28/24 14:49 ns oxycodone [From Percocet] AdvReac Severe Halucinatio Verified 07/28/24 14:49 ns Review of Systems Narrative: Constitutional symptoms: Negative except as documented in HPI. Skin symptoms: Negative except as documented in HPI. Eye symptoms: Negative except as documented in HPI. ENMT symptoms: Negative except as documented in HPI. Respiratory symptoms: Negative except as documented in HPI. Cardiovascular symptoms: Negative except as documented in HPI. Gastrointestinal symptoms: Negative except as documented in HPI. Genitourinary symptoms: Negative except as documented in HPI. Musculoskeletal symptoms: Negative except as documented in HPI. Neurologic symptoms: Negative except as documented in HPI. Psychiatric symptoms: Negative except as documented in HPI. Endocrine symptoms: Negative except as documented in HPI. PFSH ED PFSH: Medical History History of colonic polyps Family history of colon cancer in mother Psychiatric care Gastroesophageal reflux disease Anemia Hypothyroidism Chronic low back pain COPD mixed type Depression Schizophrenia Surgical History Hx of removal of neck cyst Family History Mother Cancer Grandmother Cancer Social History Smoking and tobacco/nicotine status: never used tobacco/nicotine Quit status (tobacco/nicotine): has tried quititng Number of times tried to quit tobacco: 10 Second hand smoke exposure: No Alcohol intake: former Year of sobriety/quit date alcohol: 2017 Substance/Drug Use: former Date of last use: LAST USED A MONTH AGO Adopted: No Lives independently: Yes Household members: none Marital status: Current occupational status: disabled Pets and animals: No Do you think of yourself as: Straight/Heterosexual Current gender identity: Female Physical Exam Narrative: EXAM NARRATIVE: General: Alert, no acute distress. Skin: Warm, dry. Head: Normocephalic, atraumatic. Neck: Supple, trachea midline. Eye: Extraocular movements are intact. Ears, nose, mouth and throat: mucosa moist. Cardiovascular: Regular, Normal peripheral perfusion. Respiratory: Lungs are clear to auscultation, respirations are non-labored, breath sounds are equal, Symmetrical chest wall expansion. Gastrointestinal: Soft, Nontender, Non distended Musculoskeletal: Normal ROM, no deformity. Neurological: Alert and oriented, No focal neurological deficit observed. Psychiatric: Cooperative, odd affect Course Vital Signs: Vital signs: Vital Signs Temperature 97.9 F 07/28/24 14:45 Pulse Rate 82 07/28/24 14:45 Respiratory Rate 16 07/28/24 14:45 Blood Pressure 110/73 07/28/24 14:45 Pulse Oximetry 93 07/28/24 14:45 Oxygen Delivery Me thod Room Air 07/28/24 14:45 MDM - Anxiety Medical Decision Making Assessment and plan: Medical noncompliance Schizophrenia ? Patient is being escorted to the crisis center. - Discharged home - Discussed plan with patient. Answered any questions. - Evaluation and treatment of this problem were appropriate in the emergency setting. No radiology studies performed this visit Discharge Plan Discharge Patient Disposition: Home Clinical Impression: Medical non-compliance, Schizophrenia Condition: Stable Prescriptions: No Action simvastatin 20 mg tablet See Rx Instructions .ROUTE .COMPLEX Qty: 90 0RF Dose Instruction: Take 1 tablet by mouth once daily Rx Instructions: Take 1 tablet by mouth once daily (DME) walker See Rx Instructions .Route .MEDSUPPLY Qty: 1 0RF Rx Instructions: As directed hydrocodone-acetaminophen 5-325 mg tablet PO buprenorphine [Butrans] 7.5 mcg/hour patch weekly 1 patch transdermal Q7D gabapentin 800 mg tablet 800 mg PO TID Qty: 90 2RF Linzess 72 mcg capsule 72 mcg PO DAILY 30 Days Qty: 30 1RF aspirin [Aspir-Low] 81 mg tablet,delayed release (DR/EC) 81 mg PO QDAY Qty: 90 0RF cetirizine 10 mg capsule 10 mg PO QDAY Qty: 90 0RF lansoprazole 30 mg capsule,delayed release(DR/EC) See Rx Instructions .ROUTE .COMPLEX Qty: 30 1RF Dose Instruction: Take 1 capsule by mouth once daily Rx Instructions: Take 1 capsule by mouth once daily Trelegy Ellipta 100-62.5-25 mcg blister with device 1 inh inhalation DAILY Qty: 60 6RF levothyroxine 25 mcg tablet See Rx Instructions .ROUTE .COMPLEX Qty: 90 0RF Dose Instruction: Take 1 tablet by mouth once daily Rx Instructions: Take 1 tablet by mouth once daily bupropion HCl [Wellbutrin XL] 150 mg tablet extended release 24 hr 150 mg PO QAM Qty: 30 0RF duloxetine [Cymbalta] 30 mg capsule,delayed release(DR/EC) 30 mg PO DAILY Qty: 30 0RF duloxetine [Cymbalta] 60 mg capsule,delayed release(DR/EC) 60 mg PO DAILY Qty: 30 0RF Rx Instructions: To be taken with 30 mg cap for total of 90 mg daily. varenicline 1 mg tablet 1 mg PO BID Qty: 56 0RF trazodone 100 mg tablet 400 mg PO .HS Qty: 120 0RF hydroxyzine HCl 50 mg tablet 50 mg PO QID PRN (Reason: anxiety) Qty: 120 2RF albuterol sulfate 90 mcg/actuation HFA aerosol inhaler See Rx Instructions .ROUTE .COMPLEX Qty: 9 0RF Dose Instruction: INHALE 1 PUFF BY MOUTH 4 TIMES DAILY Rx Instructions: INHALE 1 PUFF BY MOUTH 4 TIMES DAILY alendronate 70 mg tablet See Rx Instructions .ROUTE .COMPLEX Qty: 4 0RF Dose Instruction: Take 1 tablet by mouth once a week Rx Instructions: Take 1 tablet by mouth once a week albuterol sulfate 2.5 mg /3 mL (0.083 %) solution for nebulization See Rx Instructions .ROUTE .COMPLEX Qty: 180 0RF Dose Instruction: USE 1 VIAL IN NEBULIZER 4 TIMES DAILY Rx Instructions: USE 1 VIAL IN NEBULIZER 4 TIMES DAILY magnesium hydroxide [Milk of Magnesia] 400 mg/5 mL Suspension 15 ml PO DAILY PRN (Reason: Constipation) Discharge Orders: Discharge ED (Routine); Ordered 07/28/24 Ordered By: Maureen Ho Referrals: Tomasa Singh FNP [Primary Care Provider] - Discharge Diet: Usual diet Discharge Activity: Resume usual activity Patient Instructions: Schizophrenia (ED) Activity Restrictions/Additional Instructions: Please go directly to the crisis center and they should be able to help you with your medication issues. Please do not miss any more of your scheduled appointments. If you develop suicidal thoughts, or thoughts of harming yourself, or thoughts of harming others please seek medical attention immediately. Thank you for choosing [facility] for your healthcare needs today. Please realize this is an emergency room and that we are providing you with a medical screening exam and this may not be complete and all inclusive of all the testing and or work up that you may need to determine your ailment or severity of your illness. You have been screened and evaluated and felt safe for discharge. Health conditions do change or evolve sometimes and as such it is important that you follow up with your Primary Doctor to be re checked, 3-5 days is a general good time frame for follow up. You are always welcome to return to the ED for re assessment if your symptoms are worsening or you have new concerns Coding Level of Care Code ED Talent Development Consultant for Mena Quintanilla
[2024-07-28 15:05] VITALS: BP 109/77; PULSE 81; RESP 18; O2SAT 98
--- NOTE | 2024-07-28 17:49 | W.CSC.NURCN ---
[facility] Nurse Contact Note Nurse Contact Note Client presented to [facility] seeking medication refills. States she see's Dr. Reynolds at [facility] but had missed follow up appointment and has exhausted all her medications and has been out of meds for weeks. Client was seen earlier today in ER and was referred to [facility]. Nurse obtained recent med list from patient pharmacy [facility] in [place], [place] and messaged Dr. Abarca about client needs. Nurse received no response and attempted to reach Dr. Abarca by phone call but got voicemail. Dr. Abarca then messaged Nurse and requested to have the Client come back another day. Nurse asked Dr. Abarca if he would like to schedule a visit at a specific date and time and got no response. Nurse informed patient that we are not able to meet her medication needs at this time. Client expressed she was very frustrated, raised her voice and used profanity. Patient became tearful and stated she did not have a ride home. [facility] Tammi arranged a Car tender ride for the client. Client was still upset about the outcome of her visit. Client denies SI/HI at this time. Nurse discussed with client to set up an appointment with [facility] or be seen as a walk in. Client educated to go to ER if she has any SI/HI.
--- NOTE | 2024-07-28 18:00 | CSC.DSPLAN ---
[facility] Discharge Plan Current SI: None Current HI: Denies any homicidal thoughts, plans, intentions, or time frames Safety Plan Completed: No Patient agrees with discharge safety plan: No Was the client admitted to [facility]?: Yes Were medication services provided during today's visit?: No Client Presentation upon Discharge: Client left [facility] agitated and tearful. Current Progress Towards Recovery and Well-Being: Medication needs were not able to be met this visit, Physician Dr. Abarca contacted and no new orders received. Continued Treatment Barriers: Mental health, limited income, no transportation. Treatment Goals Achieved During Program Participation: Mental health services, Transportation assistance and Medication assistance Services referred from Center: Outpatient MH treatment and Transportation Services Care Provided-Services the individual received: Crisis Services [facility] Outcome: Crisis Stabilized [facility] Discharge Disposition/Location: Home/Residence Care Coordination Agencies Referred to:: Other ([facility]) Client Follow up Plan to Referred agencies:: None
== END 2024-07-28 15:06 | disposition home or self-care (01) ==
PROVIDERS: Emergency Provider Emergency Medicine; PCP Nurse Practitioner Family
DX: F20.9 Schizophrenia, unspecified (principal); Z91.148 Patient's other noncompliance with medication regimen for other reason; Z79.82 Long term (current) use of aspirin; Z87.891 Personal history of nicotine dependence; J44.9 Chronic obstructive pulmonary disease, unspecified
CPT/HCPCS: 99281

== ENCOUNTER → 2024-09-15 11:24 | Outpatient (BNVA) | payer MEDICARE, MEDICAID, OTHER, SELFPAY | PROVIDERS: PCP Nurse Practitioner Family; Visit Provider Nurse Practitioner Family | DX: J44.9 Chronic obstructive pulmonary disease, unspecified (principal); I10 Essential (primary) hypertension; D50.8 Other iron deficiency anemias | CPT/HCPCS: 80053; 80061; 84443; 85025 ==

== ENCOUNTER 2024-10-07 15:01 | Outpatient (CLI) | payer MEDICARE, MEDICAID, SELFPAY ==
--- NOTE | 2024-10-07 15:08 | XR_ITS ---
WS: [id number] XR cervical spine 3V* [id number] REASON FOR EXAM: M54.2 - Cervicalgia FINDINGS: Normal cervical spine curvatures. Normal odontoid. Large anterior bridging osteophytes from C3-C6. Mild narrowing of the intervertebral disc spaces at C5-C6 and C6-C7. No significant listhesis. XR/XR cervical spine 3V* [id number] IMPRESSION: Severe degenerative spondylosis of the cervical spine.
== END 2024-10-07 15:02 | disposition home or self-care (01) ==
LOC: RAD 15:02
PROVIDERS: PCP Nurse Practitioner Family; Visit Provider Nurse Practitioner Family
DX: M47.892 Other spondylosis, cervical region (principal); M25.78 Osteophyte, vertebrae
CPT/HCPCS: 72040

== ENCOUNTER 2024-10-15 13:53 | Emergency (ER) | payer MEDICARE, MEDICAID, SELFPAY ==
[2024-10-15 13:55] VITALS: BP 104/71; PULSE 72; RESP 18; TEMP 36.8; O2SAT 95; BMI 25.7
[2024-10-15 14:45] LABS: Basophils # 0.1 10^3/uL (0.0-0.1); Basophils % 0.5 %; Eosinophils # 0.2 10^3/uL (0.0-0.8); Eosinophils % 1.6 %; Hematocrit 36.8 % (36-47); Lymphocytes % 31.8 %; Mean Corpuscular HGB Conc 32.3 g/dL (30-55); Mean Corpuscular Volume 98.9 fl (85-98); Mean Platelet Volume 8.6 fL (7.4-10.4); Monocytes # 0.8 10^3/uL (0.2-0.9); Monocytes % 8.5 %; Neutrophils # 5.48 10^3/uL (1.8-7.7); Neutrophils % 57.4 %; Nucleated Red Blood Cells % 0 %; Platelet Count 427 10^3/cmm (157-399); Red Blood Count 3.72 10^6/uL (3.85-5.65); Red Cell Distribution Width 13.3 % (12.1-15.1); White Blood Count 9.54 10^3/uL (3.29-11.43)
[2024-10-15 15:08] LABS: Alanine Aminotransferase 9 U/L (0-33); Albumin Level 4.2 g/dL (3.5-5.2); Alkaline Phosphatase 78 U/L (35-105); Anion Gap 14.1 (5-19); Aspartate Amino Transferase 12 U/L (0-32); Blood Urea Nitrogen 13 mg/dL (8-23); Calcium 8.4 mg/dL (8.5-10.5); Carbon Dioxide 25 mmol/L (22-29); Chloride 106 mmol/L (98-107); Creatinine Clr Calc Pharmacy 45.8104; Globulin 2.1 g/dL (1.3-4.6); Glomerular Filtration Rate 50.7 mL/min (90-130); Glucose 102 mg/dL (65-115); Lipase 34 U/L (13-60); Osmolality Calculated 292 mOsm/kg (285-295); Potassium 4.1 mmol/L (3.5-5.1); Sodium 141 mmol/L (136-145); Total Bilirubin 0.2 mg/dL (0.15-1.2); Total Protein 6.3 g/dL (6.6-8.7)
--- NOTE | 2024-10-15 17:33 | XRR_ITS ---
PROCEDURE INFORMATION: Exam: XR Abdomen Exam date and time: 10/15/2024 5:40 PM Age: 58 years old Clinical indication: Bloating and constipation; Additional info: Bloating constipation TECHNIQUE: Imaging protocol: Radiologic exam of the abdomen. Views: Frontal supine view of the abdomen. 1 View. COMPARISON: CR XR hip BI 3-4V wo/w pel [id number] 10/29/2023 3:56 PM FINDINGS: Gastrointestinal tract: Normal. No bowel dilation. Bones/joints: Unremarkable. XR/XR abdomen 1V* [id number] IMPRESSION: No acute findings.
[2024-10-15 17:45] VITALS: BP 133/85; O2SAT 99
--- NOTE | 2024-10-15 17:46 | ED_ITS ---
HPI - Abdominal Pain 2 General: Chief Complaint: Abdominal Pain Stated Complaint: bloated, nausea, hx of colon issues Time Seen by Provider: 10/15/24 17:30 History of Present Illness: Patient presents to the ER with complaints of abdominal pain and bloating for last 3 days. Patient does have a history of diverticulitis. Patient stated hurts of roughly the same spot. Patient denies any nausea vomiting diarrhea however she does states she may be constipated and has not had a good bowel movement in several days. Related Data Home Medications Medication Instructions Recorded Confirmed magnesium hydroxide 400 mg/5 mL 15 ml PO DAILY PRN Constipation 04/03/21 10/05/24 oral suspension (Milk of Magnesia) buprenorphine 7.5 mcg/hour weekly 1 patch transdermal Q7D 04/10/23 10/05/24 transdermal patch (Butrans) hydrocodone 5 mg-acetaminophen 325 tab PO 07/01/24 09/30/24 mg tablet ibuprofen 800 mg tablet 800 mg PO TID 10/05/24 10/05/24 Previous Rx's Medication Instructions Recorded aspirin 81 mg tablet,delayed 81 mg PO QDAY #90 tabs 01/29/20 release (Aspir-Low) walker #1 ea 07/18/22 hydroxyzine HCl 50 mg tablet 50 mg PO QID PRN anxiety #120 tabs 07/29/24 linaclotide 72 mcg capsule 72 mcg PO DAILY 30 days #30 caps 09/14/24 (Linzess) albuterol sulfate 2.5 mg/3 mL See Rx Instructions .Route 09/15/24 (0.083 %) solution for nebulization .COMPLEX #180 mL albuterol sulfate 90 mcg/actuation See Rx Instructions .Route 09/15/24 aerosol inhaler .COMPLEX #9 grams fluticasone fur. 100 mcg-umeclid 1 inh inhalation DAILY #60 ea 09/15/24 62.5 mcg-vilant 25 mcg inhalat.powder (Trelegy Ellipta) lansoprazole 30 mg capsule,delayed See Rx Instructions .Route 09/15/24 release .COMPLEX #30 caps levothyroxine 25 mcg tablet See Rx Instructions .Route 09/15/24 .COMPLEX #90 tabs nebulizer hose and mouthpiece #1 ea 09/15/24 simvastatin 20 mg tablet See Rx Instructions .Route 09/15/24 .COMPLEX #90 tabs alendronate 70 mg tablet See Rx Instructions .Route 09/25/24 .COMPLEX #4 tabs bupropion HCl 150 mg 24 hr tablet, 150 mg PO QAM #30 tabs 10/05/24 extended release (Wellbutrin XL) duloxetine 30 mg capsule,delayed 30 mg PO DAILY #30 caps 10/05/24 release (Cymbalta) duloxetine 60 mg capsule,delayed 60 mg PO DAILY #30 caps 10/05/24 release (Cymbalta) gabapentin 800 mg tablet 800 mg PO TID #90 tabs 10/05/24 trazodone 100 mg tablet 400 mg (4 x 100 mg) PO .HS #120 10/05/24 tabs varenicline 1 mg tablet 1 mg PO BID #56 tabs 10/05/24 ciprofloxacin HCl 500 mg tablet 500 mg PO Q12H #20 tabs 10/15/24 docusate sodium 100 mg capsule 100 mg PO QID PRN constipation #30 10/15/24 (Colace) caps metronidazole 500 mg tablet 500 mg PO Q8H #30 tabs 10/15/24 Allergies Allergy/AdvReac Type Severity Reaction Status Date / Time acetaminophen [From Percocet] AdvReac Severe Halucinatio Verified 10/15/24 14:00 ns oxycodone [From Percocet] AdvReac Severe Halucinatio Verified 10/15/24 14:00 ns PFSH ED 2 PFSH: Medical History History of colonic polyps Family history of colon cancer in mother Psychiatric care Gastroesophageal reflux disease Anemia Hypothyroidism Chronic low back pain COPD mixed type Depression Schizophrenia Surgical History Hx of removal of neck cyst Family History Mother Cancer Grandmother Cancer Social History Smoking and tobacco/nicotine status: never used tobacco/nicotine Quit status (tobacco/nicotine): has tried quititng Number of times tried to quit tobacco: 10 Second hand smoke exposure: No Alcohol intake: former Year of sobriety/quit date alcohol: 2017 Substance/Drug Use: former Date of last use: LAST USED A MONTH AGO Adopted: No Lives independently: Yes Household members: none Marital status: Current occupational status: disabled Pets and animals: No Do you think of yourself as: Straight/Heterosexual Current gender identity: Female Physical Exam 2 Const: COMMON NORMALS: no acute distress, average body habitus, patient oriented x3, no limitations, healthy appearing, alert and well nourished HENMT: COMMON NORMALS: normocephalic, atraumatic, hearing grossly normal bilaterally, external ears normal, Normal external nose present and moist oral mucous membranes HEAD & SCALP: normocephalic and atraumatic NOSE: Normal external nose present EXTERNAL EAR: Yes external ears normal Neck/C-Spine: COMMON NORMALS: full ROM, no lymphadenopathy, supple, no meningeal signs, no JVD and Thyroid normal THYROID: Thyroid normal Chest: COMMONS NORMALS: normal inspection of the chest and normal palpation of entire chest wall Resp: COMMON NORMALS: normal respiratory effort, No retractions, No use of accessory muscles and clear to auscultation bilaterally AUSCULTATION: clear to auscultation bilaterally Cardio: COMMON NORMALS: no JVD, regular rate, regular rhythm, S1 normal heart sound present, S2 normal heart sound present, No gallops present (Cardio), No clicks present (Cardio), No murmurs present (Cardio) and No rub (Cardio) R ATE: regular rate RHYTHM: regular rhythm HEART SOUNDS: S1 normal heart sound present and S2 normal heart sound present GI: COMMON NORMALS: Normal to inspection, nondistended, normoactive bowel sounds present, Soft to palpation, No hepatosplenomegaly present and no masses; negative for non-tender (Minimal tenderness left lower quadrant) PALPATION: Y es Soft to palpation and Yes No hepatosplenomegaly present Neuro: COMMON NORMALS: patient oriented x3 SENSORIUM/ORIENTATION: Yes alert MENINGEAL SIGNS: Yes no meningeal signs Course 2 Vital Signs: Vital signs: Vital Signs Temperature 98.3 F 10/15/24 13:55 Pulse Rate 72 10/15/24 13:55 Respiratory Rate 18 10/15/24 13:55 Blood Pressure 133/85 10/15/24 17:45 Pulse Oximetry 99 10/15/24 17:45 Oxygen Delivery Me thod Room Air 10/15/24 13:55 MDM - Abdominal Pain Medical Decision Making Lab work was obtained which was essentially remarkable, abdomen x-ray showed prominent stool. Patient be given Colace and Cipro here in ER as well as a prescription sent home for them if the patient starting a mild case of diverticulitis this will be coverage. Medical Records I reviewed the patient's medical records. Lab Data I reviewed the patient's lab results. 10/15/24 14:35 10/15/24 14:35 Labs/Radiology: Laboratory Results WBC 9.54 10^3/uL (3.29-11.43) 10/15/24 14:35 RBC 3.72 10^6/uL (3.85-5.65) L 10/15/24 14:35 Hgb 11.90 g/dL (11.27-16.99) 10/15/24 14:35 Hct 36.8 % (36-47) 10/15/24 14:35 MCV 98.9 fl (85-98) H 10/15/24 14:35 MCH 32.0 pg (27-33) 10/15/24 14:35 MCHC 32.3 g/dL (30-55) 10/15/24 14:35 RDW 13.3 % (12.1-15.1) 10/15/24 14:35 Plt Count 427 10^3/cmm (157-399) H 10/15/24 14:35 MPV 8.6 fL (7.4-10.4) 10/15/24 14:35 Neut % (Auto) 57.4 % 10/15/24 14:35 Lymph % (Auto) 31.8 % 10/15/24 14:35 [place] % (Auto) 8.5 % 10/15/24 14:35 Eos % (Auto) 1.6 % 10/15/24 14:35 Baso % (Auto) 0.5 % 10/15/24 14:35 Neut # (Auto) 5.48 10^3/uL (1.8-7.7) 10/15/24 14:35 Lymph # (Auto) 3.0 10^3/uL (0.8-4.8) 10/15/24 14:35 [place] # (Auto) 0.8 10^3/uL (0.2-0.9) 10/15/24 14:35 Eos # (Auto) 0.2 10^3/uL (0.0-0.8) 10/15/24 14:35 Baso # (Auto) 0.1 10^3/uL (0.0-0.1) 10/15/24 14:35 Nucleated RBC % (auto) 0 % 10/15/24 14:35 Nucleated RBCs # 0.0 /100WBC 10/15/24 14:35 Sodium 141 mmol/L (136-145) 10/15/24 14:35 Potassium 4.1 mmol/L (3.5-5.1) 10/15/24 14:35 Chloride 106 mmol/L (98-107) 10/15/24 14:35 Carbon Dioxide 25 mmol/L (22-29) 10/15/24 14:35 Anion Gap 14.1 (5-19) 10/15/24 14:35 BUN 13 mg/dL (8-23) 10/15/24 14:35 Creatinine 1.1 mg/dL (0.5-0.9) H 10/15/24 14:35 GFR Calculation 50.7 mL/min (90-130) L 10/15/24 14:35 Glucose 102 mg/dL (65-115) 10/15/24 14:35 Calculated Osmolality 292 mOsm/kg (285-295) 10/15/24 14:35 Calcium 8.4 mg/dL (8.5-10.5) L 10/15/24 14:35 Total Bilirubin 0.2 mg/dL (0.15-1.2) 10/15/24 14:35 AST 12 U/L (0-32) 10/15/24 14:35 ALT 9 U/L (0-33) 10/15/24 14:35 Alkaline Phosphatase 78 U/L (35-105) 10/15/24 14:35 Total Protein 6.3 g/dL (6.6-8.7) L 10/15/24 14:35 Albumin 4.2 g/dL (3.5-5.2) 10/15/24 14:35 Globulin 2.1 g/dL (1.3-4.6) 10/15/24 14:35 Lipase 34 U/L (13-60) 10/15/24 14:35 All radiology interpretation(s) finalized by discharge Discharge Plan Discharge Patient Disposition: Home Clinical Impression: Abdominal pain, left lower quadrant Constipation Qualifiers: Constipation type: unspecified constipation type Qualified Code(s): K59.00 - Constipation, unspecified Condition: Stable Prescriptions: New metronidazole 500 mg tablet 500 mg PO Q8H Qty: 30 0RF ciprofloxacin HCl 500 mg tablet 500 mg PO Q12H Qty: 20 0RF docusate sodium [Colace] 100 mg capsule 100 mg PO QID PRN (Reason: constipation) Qty: 30 0RF No Action (DME) walker See Rx Instructions .Route .MEDSUPPLY Qty: 1 0RF Rx Instructions: As directed hydrocodone-acetaminophen 5-325 mg tablet PO ibuprofen 800 mg tablet 800 mg PO TID bupropion HCl [Wellbutrin XL] 150 mg tablet extended release 24 hr 150 mg PO QAM Qty: 30 2RF duloxetine [Cymbalta] 60 mg capsule,delayed release(DR/EC) 60 mg PO DAILY Qty: 30 2RF duloxetine [Cymbalta] 30 mg capsule,delayed release(DR/EC) 30 mg PO DAILY Qty: 30 2RF gabapentin 800 mg tablet 800 mg PO TID Qty: 90 2RF varenicline 1 mg tablet 1 mg PO BID Qty: 56 2RF trazodone 100 mg tablet 400 mg PO .HS Qty: 120 2RF levothyroxine 25 mcg tablet See Rx Instructions .ROUTE .COMPLEX Qty: 90 0RF Dose Instruction: Take 1 tablet by mouth once daily Rx Instructions: Take 1 tablet by mouth once daily albuterol sulfate 90 mcg/actuation HFA aerosol inhaler See Rx Instructions .ROUTE .COMPLEX Qty: 9 0RF Dose Instruction: INHALE 1 PUFF BY MOUTH 4 TIMES DAILY Rx Instructions: INHALE 1 PUFF BY MOUTH 4 TIMES DAILY albuterol sulfate 2.5 mg /3 mL (0.083 %) solution for nebulization See Rx Instructions .ROUTE .COMPLEX Qty: 180 0RF Dose Instruction: USE 1 VIAL IN NEBULIZER 4 TIMES DAILY Rx Instructions: USE 1 VIAL IN NEBULIZER 4 TIMES DAILY Trelegy Ellipta 100-62.5-25 mcg blister with device 1 inh inhalation DAILY Qty: 60 6RF lansoprazole 30 mg capsule,delayed release(DR/EC) See Rx Instructions .ROUTE .COMPLEX Qty: 30 1RF Dose Instruction: Take 1 capsule by mouth once daily Rx Instructions: Take 1 capsule by mouth once daily simvastatin 20 mg tablet See Rx Instructions .ROUTE .COMPLEX Qty: 90 0RF Dose Instruction: Take 1 tablet by mouth once daily Rx Instructions: Take 1 tablet by mouth once daily (DME) nebulizer hose and mouthpiece See Rx Instructions .Route .MEDSUPPLY Qty: 1 0RF Rx Instructions: As directed buprenorphine [Butrans] 7.5 mcg/hour patch weekly 1 patch transdermal Q7D aspirin [Aspir-Low] 81 mg tablet,delayed release (DR/EC) 81 mg PO QDAY Qty: 90 0RF hydroxyzine HCl 50 mg tablet 50 mg PO QID PRN (Reason: anxiety) Qty: 120 2RF Linzess 72 mcg capsule 72 mcg PO DAILY 30 Days Qty: 30 1RF alendronate 70 mg tablet See Rx Instructions .ROUTE .COMPLEX Qty: 4 0RF Dose Instruction: Take 1 tablet by mouth once a week Rx Instructions: Take 1 tablet by mouth once a week magnesium hydroxide [Milk of Magnesia] 400 mg/5 mL Suspension 15 ml PO DAILY PRN (Reason: Constipation) Discharge Orders: Discharge ED (Routine); Ordered 10/15/24 Ordered By: Jimbo Heard Referrals: Tomasa Singh FNP [Primary Care Provider] - 1 week Patient Instructions: Abdominal Pain (ED), Constipation (ED) Activity Restrictions/Additional Instructions: Please pick your medicines up at pharmacy and take them as directed. Please follow-up with your family practice physician within next 7 days for further evaluation and treatment. Thank you for choosing [facility] for your healthcare needs today. Please realize that you were seen in the emergency department and that we are providing you with an emergency medical screening exam and this may not be a complete and all exclusive of all testing and/or medical workup we may need to determine your element or severity of your illness. It is very important that you follow-up as instructed with your primary care provider or specialist for the additional evaluation and to discuss your medical treatment plan. You may return to the emergency department should you have concerns or if your condition changes or worsens in any way. Coding Level of Care Code ED Parimutuel Cashier for Mena Quintanilla
[2024-10-15] MEDS: docusate sodium 100 mg Capsule PO (18:16)
[2024-10-15] MEDS: ciprofloxacin 500 mg Tablet PO (18:16)
[2024-10-15 18:23] VITALS: BP 105/68; PULSE 77; RESP 16; O2SAT 96
== END 2024-10-15 18:25 | disposition home or self-care (01) ==
PROVIDERS: Emergency Medicine; Emergency Provider Emergency Medicine; PCP Nurse Practitioner Family
DX: R10.32 Left lower quadrant pain (principal); K59.00 Constipation, unspecified
CPT/HCPCS: 36415; 74018; 80053; 83690; 85025; 99284

== ENCOUNTER → 2024-12-16 13:54 | Outpatient (BNVA) | payer MEDICARE, MEDICAID, SELFPAY | PROVIDERS: PCP Nurse Practitioner Family; Visit Provider Nurse Practitioner Family | DX: F33.2 Major depressive disorder, recurrent severe without psychotic features (principal) | CPT/HCPCS: 84443 ==

== ENCOUNTER 2025-03-25 12:10 | Outpatient (CLI) | payer MEDICARE, MEDICAID, SELFPAY ==
--- NOTE | 2025-03-25 12:25 | XR_ITS ---
WS: [id number] Exam: XR elbow RT min 3V* [id number] Date/Time of Exam: 03/25/2025 12:26 PM Reason For Exam: CLOSED NONDISPLACED FX OF HEAD OF R RADIUS There appears to be a healing nondisplaced fracture of the neck and head of the radius. No other fractures are noted. There is spurring of the coronoid process of the ulna. There may be joint effusion. Tendinous calcification along the medial and lateral epicondyles of the humerus. XR/XR elbow RT min 3V* [id number] IMPRESSION: 1. Healing nondisplaced fractures of the neck and head of the radius. 2. Degenerative changes.
== END 2025-03-25 12:11 | disposition home or self-care (01) ==
PROVIDERS: PCP Nurse Practitioner Family; Visit Provider Physician Assistant Medical
DX: S52.124A Nondisplaced fracture of head of right radius, initial encounter for closed fracture (principal); S52.134A Nondisplaced fracture of neck of right radius, initial encounter for closed fracture; X58.XXXA Exposure to other specified factors, initial encounter; M25.721 Osteophyte, right elbow; R93.6 Abnormal findings on diagnostic imaging of limbs
CPT/HCPCS: 73080

== ENCOUNTER → 2025-04-07 09:57 | Outpatient (BNVA) | payer MEDICARE, MEDICAID, SELFPAY | PROVIDERS: PCP Nurse Practitioner Family; Visit Provider Nurse Practitioner Family | DX: I10 Essential (primary) hypertension (principal) | CPT/HCPCS: 80053; 80061; 84443 ==

== ENCOUNTER → 2025-04-28 14:08 | Outpatient (BNVA) | payer MEDICARE, MEDICAID, SELFPAY | PROVIDERS: PCP Nurse Practitioner Family; Visit Provider Nurse Practitioner Family | DX: Z72.51 High risk heterosexual behavior (principal) | CPT/HCPCS: 86592; 86705; 86706; 86709; 86803; 87340; 87491; 87591; 87661; 87806 ==

== ENCOUNTER 2025-05-04 15:37 | Outpatient (CLI) | payer OTHER, MEDICAID, SELFPAY ==
--- NOTE | 2025-05-04 08:16 | US_ITS ---
WS: [id number] ULTRASOUND SOFT TISSUE RIGHT NECK HISTORY: R22.1 - Localized swelling, mass and lump, neck. Orthopedic follow-up. COMPARISON: None available. Palpable area along the RIGHT neck is imaged. This palpable area is a hypoechoic mass with echogenic rim ovoid in shape measuring 0.7 x 0.5 x 0.2 cm. No increased vascularity. This may be a small lymph node. No additional abnormality. US/US soft tissue head neck [id number] IMPRESSION: Single hypoechoic mass along the RIGHT neck measures 0.7 x 0.5 x 0.2 cm. Very n onspecific in ultrasound appearance. Differential includes small lymph node or sebaceous cyst. No tract noted extending superficial.
== END 2025-05-04 15:38 | disposition home or self-care (01) ==
PROVIDERS: PCP Nurse Practitioner Family; Visit Provider Nurse Practitioner Family
DX: R22.1 Localized swelling, mass and lump, neck (principal)
CPT/HCPCS: 76536

== ENCOUNTER 2025-05-06 15:07 | Outpatient (CLI) | payer OTHER, MEDICAID, SELFPAY ==
--- NOTE | 2025-05-06 15:09 | MR_ITS ---
WS: [id number] MRI LUMBAR SPINE NONCONTRAST HISTORY: SPINAL STENOSIS,LSPINE REGION COMPARISON: None available. TECHNIQUE: Sagittal and axial multisequence imaging is submitted. Mild degenerative cervical and thoracic disc disease. L1 retrolisthesis by 5 mm. 3 mm retrolisthesis of L3. L5 anterolisthesis by 3.3 mm. Disc spaces are narrowed and desiccated. No acute fracture. There is a small amount of reactive edema along the endplates of L2, L3 and L4. Marrow edema also involving the LEFT L4 and L5 pedicles and lamina. Conus terminates normally at L1-2 disc level. L1-L2: Diffuse annular disc bulging with a moderate central disc protrusion encroaching upon the subarticular recesses, RIGHT greater than LEFT. Disc protrusion extends caudad to the disc level. Mild osteophytic ridging with ligamentum flavum hypertrophy. Moderate central, subarticular recess and bilat eral foraminal stenosis. L2-L3: Diffuse annular disc bulging with osteophytic ridging, moderate ligamentum flavum and facet arthritis. Mild central with bilateral subarticular recess and moderate bilateral foraminal stenosis. L3-L4: Diffuse annular disc bulging with ligamentum flavum and facet arthritis. There is significant contact on the subarticular recesses and traversing L4 nerve roots. Moderate to severe central, bilateral subarticular recess and RIGHT foraminal stenosis. Mild LEFT foraminal stenosis. L4-L5: Diffuse annular disc bulge with a central disc protrusion and asymmetric disc bulging to the RIGHT. Severe facet and ligamentum flavum hypertrophy. Severe central and bilateral subarticular recess stenosis with moderate to severe foraminal stenosis. L5-S1: Annular disc bulging with marked ligamentum flavum and facet arthritis. Disc encroaches upon the thecal sac and subarticular recesses. Severe central, bilateral subarticular recess and moderate foraminal stenosis, LEFT greater than RIGHT. LEFT renal cysts. MR/MR lumbar spine wo con* [id number] IMPRESSION: 1. Advanced degenerative disc and facet disease with multiple levels of stenos is throughout the lumbar spine. 2. L1-2: Moderate size central disc protrusion extends into the subarticular r ecess, RIGHT greater than LEFT. Moderate central, subarticular recess and bilat eral foraminal stenosis. 3. L2-3: Mild central with bilateral subarticular recess and moderate foramina l stenosis due to disc osteophyte disease. 4. L3-4: Moderate to severe central, bilateral subarticular recess and RIGHT f oraminal stenosis. 5. L4-5: Severe central, bilateral subarticular recess with moderate to severe foraminal stenosis. 6. L5-S1: Severe central, bilateral subarticular recess and moderate foraminal stenosis, LEFT greater than RIGHT. 7. Grade 1 anterolisthesis L5.
== END 2025-05-06 15:08 | disposition home or self-care (01) ==
PROVIDERS: PCP Nurse Practitioner Family; Visit Provider Anesthesiology
DX: M51.17 Intervertebral disc disorders with radiculopathy, lumbosacral region (principal); M46.1 Sacroiliitis, not elsewhere classified
CPT/HCPCS: 72148

== ENCOUNTER 2025-06-30 07:19 | Outpatient (CLI) | payer OTHER, MEDICAID, SELFPAY ==
--- NOTE | 2025-06-30 07:45 | US_ITS ---
WS: [id number] RIGHT UPPER QUADRANT ULTRASOUND HISTORY: Z86.19 - Personal history of other infectious and parasit... COMPARISON: None available. Liver: 12.2 cm in length. Normal size liver and echogenicity. No bile duct dilatation or mass. Portal Vein: Normal hepatopetal flow with monophasic waveform. Gallbladder: Status post cholecystectomy. CBD: 0.9 cm Pancreas: Normal size and echogenicity. Right kidney: 9.1 cm in length. Normal size and echogenicity. No hydronephrosis or mass. Aorta and IVC: Unremarkable abdominal aorta and IVC. No ascites. US/US liver [id number] IMPRESSION: 1. Status post cholecystectomy. 2. Normal liver. No intrahepatic cystic lesions.
== END 2025-06-30 07:20 | disposition home or self-care (01) ==
LOC: RAD 07:20
PROVIDERS: PCP Nurse Practitioner Family; Visit Provider Nurse Practitioner Family
DX: Z86.19 Personal history of other infectious and parasitic diseases (principal)
CPT/HCPCS: 76705

== ENCOUNTER → 2025-07-06 07:55 | Outpatient (BNVA) | payer OTHER, MEDICAID, SELFPAY | PROVIDERS: PCP Nurse Practitioner Family; Visit Provider Surgery | DX: R22.1 Localized swelling, mass and lump, neck (principal); J34.9 Unspecified disorder of nose and nasal sinuses | CPT/HCPCS: 99202 ==

== ENCOUNTER 2025-08-27 11:04 | Outpatient (CLI) | payer OTHER, MEDICAID, SELFPAY ==
--- NOTE | 2025-08-27 11:10 | CT_ITS ---
WS: [id number] CT NECK TECHNIQUE: Contrast-enhanced CT of the neck with coronal and sagittal reformatted images. CLINICAL INFORMATION: SWELLING, MASS OR LUMP NECK COMPARISON: None. DLP: 245.[address] scans at [facility] use at least one of these dose optimization techniques: automated exposure control; mA and/or kV adjustment per patient size (includes targeted exams where dose is matched to clinical indication); or iterative reconstruction. FINDINGS: Normal parotid glands. Normal submandibular glands. Normal posterior nasopharynx. No evidence of supraglottic or glottic mass. Normal subglottic airway. Normal thyroid gland. Lung apices are well aerated. Moderate spondylitic changes cervical spine with hypertrophic changes in the mid cervical spine. G rade 1 anterolisthesis C6 on C7. Mucosal thickening LEFT maxillary sinus. Mastoid air cells are well aerated. Area of interest marked with a BB in the RIGHT posterior neck. Normal underlying soft tissues. No suspicious abnormalities in this area. Normal thyroid gland. No cervical lymphadenopathy. CT/CT neck w con* [id number] IMPRESSION: Area of interest marked with a BB in the RIGHT posterior neck. Normal underly ing soft tissues. No suspicious abnormalities in this area.
[2025-08-27] MEDS: iohexol 350 mg/mL 500 mL Btl (per mL) IV (11:13)
[2025-08-27 11:51] LABS: Blood Urea Nitrogen 8 mg/dL (8-23)
== END 2025-08-27 11:05 | disposition home or self-care (01) ==
PROVIDERS: PCP Nurse Practitioner Family; Visit Provider Otolaryngology
DX: R22.1 Localized swelling, mass and lump, neck (principal)
CPT/HCPCS: 70491; 82565; 84520